=== PATIENT | female | born 1990 | race Two or more races ===

== ENCOUNTER 2020-10-17 04:19 | Day surgery (SDC) | payer BC, OTHER ==
[2020-10-13 18:32] VITALS: BMI 22.7
[2020-10-17] MEDS ORDERED: MIDAZOLAM HCL 2 MG/2 ML SINGLE DOSE VIAL ONE (07:30)
[2020-10-17] MEDS ORDERED: PROPOFOL 20 ML ONE (07:30)
[2020-10-17] MEDS ORDERED: IBUPROFEN 800 MG/8 ML IJ IVPB PRN (07:44)
[2020-10-17] MEDS ORDERED: IBUPROFEN 600 MG TABLET (FP) PO PRN (07:44)
[2020-10-17] MEDS ORDERED: ONDANSETRON 4 MG/2 ML VIAL IVPUSH PRN ×2 (07:44→08:31)
[2020-10-17] MEDS ORDERED: oxyCODONE HCL 5 MG TABLET PO PRN (07:44)
[2020-10-17] MEDS ORDERED: RHO(D) IMMUNE GLOBULIN 1,500 UNIT DISP.SYRIN IM ONE (07:45)
[2020-10-17] MEDS ORDERED: ELECTROLYTE-148 SOLN 1,000 ML IV SCH (07:45)
[2020-10-17] MEDS ORDERED: DOXYCYCLINE HYCLATE 100 MG VIAL IVPB ONE (07:56)
[2020-10-17] MEDS ORDERED: ONDANSETRON 4 MG/2 ML VIAL ONE (08:02)
[2020-10-17] MEDS ORDERED: PROMETHAZINE HCL 25 MG/1 ML VIAL IVPUSH PRN (08:31)
[2020-10-17] MEDS ORDERED: LACTATED RINGERS SOLUTION 1,000 ML IV SCH (08:45)
[2020-10-17 12:10] VITALS: BP 125/72; PULSE 86; TEMP 97.8
== END 2020-10-17 12:12 | disposition home or self-care (01) ==
LOC: JASU-SURG 04:19
PROVIDERS: ATTEND Obstetrics & Gynecology
PROC: 10D17ZZ Extraction of Products of Conception, Retained, Via Natural or Artificial Opening (ICD-10-PCS; principal; 2020-10-17 07:30)
DX: O02.1 Missed abortion (principal); Z3A.08 8 weeks gestation of pregnancy
CPT/HCPCS: 84703; 86850; 86900; 86901; 86999; 88305-TC; 94760

== ENCOUNTER 2021-06-25 14:00 | Inpatient (IN) | payer BC, OTHER ==
[2021-06-25] MEDS: DEXTROSE 5%-LACTATED RINGERS 1,000 ML IV SCH (15:10)
[2021-06-25 16:30] LABS: PH,URINE 5.5 (5.0-8.0); URINE APPEARANCE Clear; URINE BILIRUBIN Negative (NEGATIVE); URINE COLOR Yellow; URINE GLUCOSE (UA) Negative (NEGATIVE); URINE KETONE Trace (NEGATIVE); URINE LEUK ESTERASE Trace (NEGATIVE); URINE NITRITE Negative (NEGATIVE); URINE PROTEIN Negative (NEGATIVE); URINE UROBILINOGEN 0.2 mg/dL (0.2-1.0)
[2021-06-25 16:42] LABS: BASO % 0.4 % (0-2.0); EOS % 0.8 % (0-4.5); HEMATOCRIT 32.8 % (32.4-45.2); HEMOGLOBIN 11.5 GM/dL (10.7-15.3); LYMPH % 15.5 % (8-40); MCH 29.6 pg (25.7-33.7); MCHC 35.2 g/dl (32.0-36.0); MEAN CELL VOLUME 83.9 fl (80-96); MEAN PLT VOLUME 9.9 fl (7.5-11.1); MONO % 6.4 % (3.8-10.2); NEUT % 76.9 % (42.8-82.8); PLATELET COUNT 145 10^3/uL (134-434); RBC 3.91 M/mm3 (3.60-5.2); RDW 13.1 % (11.6-15.6); WHITE BLOOD COUNT 10.6 K/mm3 (4.0-10.0)
[2021-06-25 16:46] VITALS: BMI 26.6
[2021-06-25 16:51] LABS: INR 0.9 (0.83-1.09); PROTHROMBIN TIME (PATIENT) 10.5 SEC (9.7-13.0)
[2021-06-25 16:54] LABS: ACTIVATED PTT 23.6 SECONDS (25.2-36.5)
[2021-06-25 17:02] LABS: ALBUMIN 2.4 g/dl (3.4-5.0); BLOOD UREA NITROGEN 10.5 mg/dL (7-18); CALCIUM 8.5 mg/dL (8.5-10.1)
[2021-06-25 17:04] LABS: URIC ACID 4.3 mg/dL (2.6-7.2)
[2021-06-25 17:06] LABS: CREATININE 0.5 mg/dL (0.55-1.3)
[2021-06-25 17:07] LABS: BILIRUBIN,TOTAL 0.2 mg/dL (0.2-1); TOT PROT 5.4 g/dl (6.4-8.2)
[2021-06-25] MEDS ORDERED: ACETAMINOPHEN INJECTION 100 ML IVPB ONE (18:25)
[2021-06-25] MEDS ORDERED: ACETAMINOPHEN 1000 MG/100 ML VIAL IVPB ONE (18:27)
[2021-06-26 05:54] LABS: BASO % 0.3 % (0-2.0); HEMOGLOBIN 11.6 GM/dL (10.7-15.3); LYMPH % 18.5 % (8-40); MCH 29.5 pg (25.7-33.7); MEAN CELL VOLUME 84.3 fl (80-96); MEAN PLT VOLUME 9.9 fl (7.5-11.1); MONO % 8.1 % (3.8-10.2); NEUT % 72.1 % (42.8-82.8); PLATELET COUNT 137 10^3/uL (134-434); RBC 3.91 M/mm3 (3.60-5.2); RDW 13.6 % (11.6-15.6); WHITE BLOOD COUNT 9.2 K/mm3 (4.0-10.0)
[2021-06-26 06:09] LABS: BLOOD UREA NITROGEN 10.1 mg/dL (7-18); CALCIUM 8.6 mg/dL (8.5-10.1)
[2021-06-26 06:10] LABS: ALBUMIN 2.2 g/dl (3.4-5.0)
[2021-06-26 06:12] LABS: URIC ACID 3.9 mg/dL (2.6-7.2)
[2021-06-26 06:13] LABS: CREATININE 0.4 mg/dL (0.55-1.3)
[2021-06-26 06:14] LABS: BILIRUBIN,TOTAL 0.2 mg/dL (0.2-1); TOT PROT 5.2 g/dl (6.4-8.2)
[2021-06-26] MEDS ORDERED: ACETAMINOPHEN 1000 MG/100 ML VIAL IVPB ONE (06:30)
[2021-06-26] MEDS ORDERED: ACETAMINOPHEN INJECTION 100 ML IVPB ONE (07:20)
[2021-06-26] MEDS: DEXTROSE 5%-LACTATED RINGERS 1,000 ML IV SCH ×2 (07:28→18:39)
[2021-06-26] MEDS ORDERED: ACETAMINOPHEN 325 MG TABLET (FP) PO PRN (16:30)
[2021-06-26] MEDS ORDERED: MAGNESIUM SULF 50% (8.12 MEQ/2 ML-1 GM VIAL) IVPB ONE ×3 (16:55→17:15)
[2021-06-26] MEDS ORDERED: MAGNESIUM IN WATER 4 GM/50 ML PREMIX BAG IVPB ONE (17:15)
[2021-06-26 17:16] VITALS: TEMP 97.5
[2021-06-26] MEDS ORDERED: LABETALOL HCL 5 MG/1 ML (100MG/20 ML VIAL) ONE (17:54)
[2021-06-26] MEDS ORDERED: NIFEdipine 10 MG CAPSULE (FP) ONE (17:58)
[2021-06-26] MEDS ORDERED: NIFEdipine 10 MG CAPSULE (FP) PO ONE (18:00)
[2021-06-26] MEDS ORDERED: MAGNESIUM SULFATE 20GM/500ML - 20 GM/500 ML INFUS.BAG ONE (18:24)
[2021-06-26 21:06] VITALS: BP 136/87; PULSE 94
== END 2021-06-26 20:50 | disposition short-term general hospital (02) | DRG 831 ==
LOC: JDEL 14:00 → JLDR 14:30 → J3W 20:15 → JLDR 06-26 17:57
PROVIDERS: ADMIT Obstetrics & Gynecology; ATTEND Obstetrics & Gynecology
DX: O14.13 Severe pre-eclampsia, third trimester (principal); O60.03 Preterm labor without delivery, third trimester; Z3A.31 31 weeks gestation of pregnancy
CPT/HCPCS: 36415; 80053; 81003; 82575; 84550; 85025; 85384; 85610; 85730; 86850; 86870; 86900; 86901; 86902; 87086; C9803; J0131; U0003; U0005